=== PATIENT | male | born 1985 | race Two or more races ===

== ENCOUNTER 2021-02-03 19:33 | Emergency (ER) | payer SELFPAY ==
[2021-02-03 20:32] LABS: HEMOGLOBIN 17.1 gm/dl (14.0-17.5); RED BLOOD COUNT 5.35 M/UL (4.20-5.50); WHITE BLOOD COUNT 11.7 K/UL (4.5-11.0)
[2021-02-03 20:47] LABS: BUN/CREATININE RATIO 18 (0-10)
[2021-02-03] MEDS ORDERED: ZOFRAN4 MG PO (21:15)
== END 2021-02-03 19:45 | disposition home or self-care (01) ==
LOC: ER1 19:33
PROVIDERS: Physician Assistant; Preventive Medicine Occupational Medicine
DX: E86.0 Dehydration (principal); M62.82 Rhabdomyolysis; F17.290 Nicotine dependence, other tobacco product, uncomplicated
CPT/HCPCS: 80053; 80307; 81001; 82550; 82553; 83605; 83735; 83874; 84484; 85025; 87086; 93005; 99283